=== PATIENT | female | born 1945 | race Caucasian/White ===

== ENCOUNTER 2017-08-20 09:19 | Inpatient (IN) ==
[2017-08-20] MEDS ORDERED: MAGNESIUM SULF RIDER 2 GM in PREMIX 1 EACH IV PRN (11:45)
[2017-08-20] MEDS ORDERED: ONDANSETRON 4 MG/2 ML VIAL IV PRN (11:45)
[2017-08-20] MEDS ORDERED: MAGNESIUM SULF RIDER 4 GM in PREMIX 1 EACH IV PRN (11:45)
[2017-08-20] MEDS ORDERED: ZALEPLON 5 MG CAPSULE PO PRN (11:45)
[2017-08-20] MEDS ORDERED: ACETAMINOPHEN 325 MG TABLET PO PRN (11:45)
[2017-08-20 12:18] LABS: Basophils # 0.1 10*3/uL (0.0-0.2); Basophils % 0.8 % (0.0-0.8); Hematocrit 34.1 VOL% (35.7-47.0); Hemoglobin 11.1 GM/DL (12.0-16.0); Immature Granulocytes % 0.3 %; Immature Granulocytes Absolute 0.02 #; Lymphocytes # 2.5 10*3/uL (1.4-4.0); Lymphocytes % 38.9 % (21.3-54.2); Mean Corpuscular HGB Conc 32.6 GM/DL (32-36); Mean Corpuscular Hemoglobin 32 PG (27-34); Mean Corpuscular Volume 98.8 FL (87-102); Mean Platelet Volume 9.5 FL (9.6-12.0); Monocytes # 0.6 10*3/uL (0.11-0.8); Monocytes % 8.8 % (1.7-12.7); Neutrophils # 3.3 10*3/uL (1.4-7.4); Neutrophils % 51.2 % (38.7-73.9); Platelet Count 188 T/CUMM (130-400); Red Blood Count 3.45 MC/CUMM (3.8-5.5); Red Cell Distribution Width 12.6 % (9.3-17.3); White Blood Count 6.4 T/CUMM (4-12)
[2017-08-20 12:56] LABS: Calcium 8.7 MG/DL (8.5-10.1); Osmolality,Calculated 283.1 MOS/KG (273-304); Potassium 4.1 MMOL/L (3.5-5.1)
[2017-08-20] MEDS ORDERED: APIXABAN 5 MG TABLET PO SCH (21:00)
[2017-08-20] MEDS: carBAMazepine 200 MG TABLET PO SCH (21:58)
[2017-08-20] MEDS: SOTALOL 80 MG TABLET PO SCH (21:58)
[2017-08-20] MEDS: ATORVASTATIN 10 MG TABLET PO SCH (22:01)
[2017-08-20] MEDS: DOCUSATE SODIUM 100 MG CAPSULE PO SCH (22:01)
[2017-08-21 03:16] LABS: Basophils % 0.6 % (0.0-0.8); Eosinophils % 0.2 % (0.00-10.9); Hematocrit 35.3 VOL% (35.7-47.0); Hemoglobin 11.9 GM/DL (12.0-16.0); Lymphocytes % 47.1 % (21.3-54.2); Mean Corpuscular HGB Conc 33.7 GM/DL (32-36); Mean Corpuscular Hemoglobin 32 PG (27-34); Mean Corpuscular Volume 95.9 FL (87-102); Mean Platelet Volume 10.1 FL (9.6-12.0); Monocytes # 0.6 10*3/uL (0.11-0.8); Monocytes % 8.8 % (1.7-12.7); Neutrophils # 2.7 10*3/uL (1.4-7.4); Neutrophils % 43.3 % (38.7-73.9); Platelet Count 202 T/CUMM (130-400); Red Blood Count 3.68 MC/CUMM (3.8-5.5); Red Cell Distribution Width 12.4 % (9.3-17.3); White Blood Count 6.3 T/CUMM (4-12)
[2017-08-21 03:30] LABS: Albumin 3.1 G/DL (3.4-5.0); Bilirubin,Total 0.6 MG/DL (0.2-1.0); Calcium 8.4 MG/DL (8.5-10.1); Osmolality,Calculated 282.1 MOS/KG (273-304); Potassium 3.4 MMOL/L (3.5-5.1); Total Protein 6.3 G/DL (6.4-8.3)
[2017-08-21] MEDS: CITALOPRAM 20 MG TABLET PO SCH (08:54)
[2017-08-21] MEDS: SOTALOL 80 MG TABLET PO SCH ×2 (08:54→20:52)
[2017-08-21] MEDS: carBAMazepine 200 MG TABLET PO SCH ×2 (08:54→20:48)
[2017-08-21] MEDS: CHOLECALCIFEROL 1,000 UNIT TABLET PO SCH (08:54)
[2017-08-21] MEDS: DOCUSATE SODIUM 100 MG CAPSULE PO SCH ×2 (08:55→20:48)
[2017-08-21] MEDS: PANTOPRAZOLE 40 MG TABLET PO SCH (08:55)
[2017-08-21] MEDS: ASPIRIN EC 81 MG TABLET PO SCH ×2 (08:55→09:11)
[2017-08-21] MEDS ORDERED: MAGNESIUM HYDROXIDE SUSP 30 ML UDCUP PO PRN (17:40)
[2017-08-21] MEDS ORDERED: diphenhydrAMINE CAP 25 MG CAPSULE PO PRN (17:40)
[2017-08-21] MEDS ORDERED: ENOXAPARIN 40 MG/0.4 ML SYRINGE SUBCUT ONE ×2 (18:22)
[2017-08-21] MEDS ORDERED: ceFAZolin 1,000 MG VIAL IRRIG ONE ×2 (18:23)
[2017-08-21] MEDS ORDERED: SODIUM CHLORIDE 0.9% 1,000 ML IV SCH (18:30)
[2017-08-21] MEDS: ATORVASTATIN 10 MG TABLET PO SCH (20:48)
[2017-08-22 05:18] LABS: Calcium 8.6 MG/DL (8.5-10.1); Potassium 3.5 MMOL/L (3.5-5.1)
[2017-08-22] MEDS: SODIUM CHLORIDE 0.9% 1,000 ML IV SCH ×2 (05:45→21:23)
[2017-08-22] MEDS ORDERED: ceFAZolin 1,000 MG in SYRINGE 1 EACH IV ONE ×2 (06:00→07:00)
[2017-08-22] MEDS ORDERED: diphenhydrAMINE CAP 25 MG CAPSULE PO ONE ×3 (06:30→07:00)
[2017-08-22] MEDS ORDERED: DIAZEPAM 5 MG TABLET PO ONE ×3 (06:30→07:00)
[2017-08-22] MEDS ORDERED: MIDAZOLAM 2 MG/2 ML VIAL ONE ×2 (06:58→07:02)
[2017-08-22] MEDS ORDERED: ceFAZolin 1,000 MG VIAL IRRIG ONE (07:00)
[2017-08-22] MEDS ORDERED: fentaNYL 100 MCG/2 ML VIAL ONE (07:02)
[2017-08-22] MEDS ORDERED: TISSUE ADHESIVE 1 EACH APPLICATOR TOP ONE (07:10)
[2017-08-22] MEDS ORDERED: LIDOCAINE 1% 20 ML VIAL ONE (07:10)
[2017-08-22] MEDS ORDERED: HEPARIN/NACL 0.9% 2 UNITS/ML 500 ML IV ONE (07:10)
[2017-08-22] MEDS ORDERED: ceFAZolin 1,000 MG VIAL ONE (07:10)
[2017-08-22] MEDS: carBAMazepine 200 MG TABLET PO SCH ×2 (09:24→21:10)
[2017-08-22] MEDS: CHOLECALCIFEROL 1,000 UNIT TABLET PO SCH (09:24)
[2017-08-22] MEDS: ASPIRIN EC 81 MG TABLET PO SCH (09:24)
[2017-08-22] MEDS: DOCUSATE SODIUM 100 MG CAPSULE PO SCH ×2 (09:24→21:11)
[2017-08-22] MEDS: PANTOPRAZOLE 40 MG TABLET PO SCH (09:24)
[2017-08-22] MEDS: SOTALOL 80 MG TABLET PO SCH ×2 (09:24→21:10)
[2017-08-22] MEDS: CITALOPRAM 20 MG TABLET PO SCH (09:24)
[2017-08-22] MEDS: ATORVASTATIN 10 MG TABLET PO SCH (21:10)
[2017-08-23 05:23] LABS: Basophils % 0.5 % (0.0-0.8); Hematocrit 34.1 VOL% (35.7-47.0); Hemoglobin 11.4 GM/DL (12.0-16.0); Immature Granulocytes % 0.2 %; Immature Granulocytes Absolute 0.01 #; Lymphocytes # 2.9 10*3/uL (1.4-4.0); Lymphocytes % 44.8 % (21.3-54.2); Mean Corpuscular HGB Conc 33.4 GM/DL (32-36); Mean Corpuscular Hemoglobin 32 PG (27-34); Mean Corpuscular Volume 95.8 FL (87-102); Mean Platelet Volume 9.6 FL (9.6-12.0); Monocytes # 0.5 10*3/uL (0.11-0.8); Neutrophils % 46.5 % (38.7-73.9); Platelet Count 209 T/CUMM (130-400); Red Blood Count 3.56 MC/CUMM (3.8-5.5); Red Cell Distribution Width 12.4 % (9.3-17.3); White Blood Count 6.5 T/CUMM (4-12)
[2017-08-23 05:47] LABS: Calcium 8.3 MG/DL (8.5-10.1); Osmolality,Calculated 284.8 MOS/KG (273-304); Potassium 3.6 MMOL/L (3.5-5.1)
[2017-08-23 08:28] VITALS: BP 198/79
[2017-08-23] MEDS ORDERED: amLODIPine 10 MG TABLET PO SCH (09:00)
[2017-08-23] MEDS: CITALOPRAM 20 MG TABLET PO SCH (09:23)
[2017-08-23] MEDS: ASPIRIN EC 81 MG TABLET PO SCH (09:23)
[2017-08-23] MEDS: PANTOPRAZOLE 40 MG TABLET PO SCH (09:24)
[2017-08-23] MEDS: DOCUSATE SODIUM 100 MG CAPSULE PO SCH (09:24)
[2017-08-23] MEDS: CHOLECALCIFEROL 1,000 UNIT TABLET PO SCH (09:24)
[2017-08-23] MEDS: carBAMazepine 200 MG TABLET PO SCH (09:24)
[2017-08-23] MEDS: SOTALOL 80 MG TABLET PO SCH (09:24)
== END 2017-08-23 09:57 | disposition home or self-care (01) | DRG 244 ==
LOC: N.TELEN 11:23 → UNDODISIN 08-21 18:16
PROVIDERS: ADMIT Internal Medicine Cardiovascular Disease; ATTEND Internal Medicine Cardiovascular Disease